=== PATIENT | female | born 1995 | race Caucasian/White ===

== ENCOUNTER 2020-06-10 12:03 | Outpatient (CLI) | payer OTHER, SELFPAY | END 2020-06-11 19:02 | disposition home or self-care (01) | LOC: SLB 12:03 | PROVIDERS: ATTEND Specialist | DX: Z20.828 Contact with and (suspected) exposure to other viral communicable diseases (principal) | CPT/HCPCS: C9803; U0003 ==

== ENCOUNTER 2022-04-19 22:00 | Inpatient (IN) | payer BC ==
[~2022-04-19] VITALS: Ht 167.6 cm; Wt 86.2 kg
[2022-04-20] MEDS ORDERED: NALBUPHINE HCL 10 MG/ML AMP IVP PRN
[2022-04-20] MEDS ORDERED: TERBUTALINE SULFATE 1 MG/ML VIAL SUBCUT ONE
[2022-04-20] MEDS ORDERED: AMPICILLIN SODIUM 2 GM in NS 100 ML IV ONE ×2
[2022-04-20 00:43] LABS: HEMOGLOBIN 11.6 g/dL (12.0-16.0); RED CELL DISTRIBUTION WIDTH 15.8 % (9.0-15.0)
[2022-04-20] MEDS ORDERED: AMPICILLIN SODIUM 2 GM VIAL ONE (00:46)
[2022-04-20 00:59] LABS: BASOPHILS % (AUTO) 0.3 % (0.0-2.0); EOSINOPHILS # (AUTO) 0.2 K/uL (0.0-0.4); EOSINOPHILS % (AUTO) 1.6 % (0.0-4.0); HEMATOCRIT 34.3 % (36-48); LYMPHOCYTES # (AUTO) 2.2 K/uL (1.0-5.5); LYMPHOCYTES % (AUTO) 22.1 % (20.5-51.5); MEAN CORPUSCULAR HEMOGLOBIN 28 pg (27-31); MEAN CORPUSCULAR HGB CONC 34 % (32-36); MEAN CORPUSCULAR VOLUME 84 fL (79.0-98.0); MONOCYTES # (AUTO) 0.7 K/uL (0.0-1.0); MONOCYTES % (AUTO) 6.7 % (1.7-9.3); NEUTROPHILS % (AUTO) 69.3 % (40.0-70.0); PLATELET COUNT (AUTO) 192 K/uL (130-430); RED BLOOD CELL COUNT(AUTO) 4.09 MIL/uL (4.2-6.2)
[2022-04-20] MEDS: LR 1,000 ML IV SCH ×2 (01:05→04:41)
[2022-04-20] MEDS ORDERED: AMPICILLIN SODIUM 1 GM VIAL ONE (04:14)
[2022-04-20] MEDS: AMPICILLIN SODIUM 1 GM in NS 50 ML IV SCH ×2 (04:41→09:16)
[2022-04-20] MEDS ORDERED: ROPIVACAINE HCL/PF 0.2% 200 ML ONE (04:52)
[2022-04-20] MEDS ORDERED: fentaNYL CITRATE/PF 100 MCG/2 ML AMP ONE (04:52)
[2022-04-20] MEDS ORDERED: FENT2mCg/mL-ROPIVA0.2%/NS EPID 200 ML EP SCH (05:45)
[2022-04-20] MEDS ORDERED: LR 500 ML IV ONE (05:45)
[2022-04-20] MEDS ORDERED: CITRIC ACID/SODIUM CITRATE 30 ML UDC ONE (10:26)
[2022-04-20] MEDS ORDERED: BUPIVACAINE /PF 0.5% 30 ML VIAL ONE (10:59)
[2022-04-20] MEDS ORDERED: BUPIVACAINE /PF 0.5% 30 ML VIAL EP ONE (10:59)
[2022-04-20] MEDS ORDERED: CITRIC ACID/SODIUM CITRATE 30 ML UDC PO ONE (11:15)
[2022-04-20] MEDS ORDERED: LIGHT MINERAL OIL 10 ML VIAL MC ONE (12:27)
[2022-04-20] MEDS ORDERED: LIDOCAINE PF 1% 30ML(POUR BTL) INJ ONE (12:27)
[2022-04-20] MEDS ORDERED: NALOXONE HCL 0.4 MG/ML AMP (NARCAN) ONE (12:28)
[2022-04-20] MEDS ORDERED: WITCH HAZEL LEAF 1 MED.PAD MED.PAD TP PRN (13:45)
[2022-04-20] MEDS ORDERED: OXYTOCIN/0.9 % SODIUM CHLORIDE 1,000 ML IV ONE (13:45)
[2022-04-20] MEDS ORDERED: NALOXONE HCL 0.4 MG/ML AMP (NARCAN) IVP PRN (13:45)
[2022-04-20] MEDS ORDERED: ANUSOL 1 EA SUPP.RECT (PREPARATION H) RC PRN (13:45)
[2022-04-20] MEDS ORDERED: MEASLES,MUMPS&RUBELLA VACC/PF 12500 UNIT/0.5 ML VIAL SUBQ PRN (13:45)
[2022-04-20] MEDS ORDERED: HYDROcodone/ACETAMIN 5-325 MG TAB (NORCO/ VICODIN) PO PRN (13:45)
[2022-04-20] MEDS ORDERED: METHYLERGONOVINE MALEATE 0.2 MG TABLET PO PRN (13:45)
[2022-04-20] MEDS ORDERED: OXYTOCIN/0.9 % SODIUM CHLORIDE 1,000 ML IV SCH ×2 (13:45)
[2022-04-20] MEDS ORDERED: RHO(D) IMMUNE GLOBULIN/MALTOSE 1500 UNITS/1.3 ML (WINHRO) IM PRN (13:45)
[2022-04-20] MEDS ORDERED: LANOLIN 7 GM OINT. TP PRN (13:45)
[2022-04-20] MEDS ORDERED: DIPH-TET-PERTUS Vaccine 0.5 ML VIAL (ADACEL) I.M. PRN (13:45)
[2022-04-20] MEDS ORDERED: OXYCODONE/ACETAMINOPHEN 5-325 TABLET PO PRN (13:45)
[2022-04-20] MEDS ORDERED: DERMOPLAST SPRAY TP PRN (13:45)
[2022-04-20] MEDS ORDERED: HYDROCORTISONE 0.5% CREAM 28.4 GM CREAM.GM. TP PRN (13:45)
[2022-04-20] MEDS: IBUPROFEN 600 MG TABLET PO SCH ×2 (17:52→23:59)
[2022-04-20 20:30] VITALS: BP_SYST 105
[2022-04-20] MEDS: SENNOSIDES/DOCUSATE SODIUM 1 TAB TABLET(SENOKOT-S) PO SCH (21:06)
[2022-04-20] MEDS: TEMAZEPAM 15 MG CAPSULE PO PRN (21:10)
[2022-04-20] MEDS: OXYCODONE/ACETAMINOPHEN 5-325 TABLET PO PRN (21:15)
[2022-04-21] MEDS: IBUPROFEN 600 MG TABLET PO SCH ×3 (06:19→18:21)
[2022-04-21 06:34] LABS: BASOPHILS % (AUTO) 0.3 % (0.0-2.0); EOSINOPHILS # (AUTO) 0.1 K/uL (0.0-0.4); EOSINOPHILS % (AUTO) 1.2 % (0.0-4.0); HEMATOCRIT 30.8 % (36-48); HEMOGLOBIN 10.4 g/dL (12.0-16.0); LYMPHOCYTES # (AUTO) 2.7 K/uL (1.0-5.5); LYMPHOCYTES % (AUTO) 22.9 % (20.5-51.5); MEAN CORPUSCULAR HEMOGLOBIN 29 pg (27-31); MEAN CORPUSCULAR HGB CONC 34 % (32-36); MEAN CORPUSCULAR VOLUME 85 fL (79.0-98.0); MONOCYTES # (AUTO) 0.6 K/uL (0.0-1.0); NEUTROPHILS # (AUTO) 8.2 K/uL (1.8-7.7); NEUTROPHILS % (AUTO) 70.6 % (40.0-70.0); PLATELET COUNT (AUTO) 171 K/uL (130-430); RED CELL DISTRIBUTION WIDTH 15.7 % (9.0-15.0); WHITE BLOOD COUNT (AUTO) 11.6 K/uL (4.8-10.8)
[2022-04-21] MEDS: DOCUSATE SODIUM 100 MG CAPSULE PO SCH (08:58)
[2022-04-21] MEDS: OXYCODONE/ACETAMINOPHEN 5-325 TABLET PO PRN (13:22)
[2022-04-21 19:45] VITALS: BP_SYST 114
[2022-04-21] MEDS: SENNOSIDES/DOCUSATE SODIUM 1 TAB TABLET(SENOKOT-S) PO SCH (21:12)
[2022-04-21] MEDS: TEMAZEPAM 15 MG CAPSULE PO PRN ×2 (21:12→21:14)
[2022-04-22] MEDS: IBUPROFEN 600 MG TABLET PO SCH ×3 (00:15→12:11)
[2022-04-22] MEDS: OXYCODONE/ACETAMINOPHEN 5-325 TABLET PO PRN (00:16)
[2022-04-22] MEDS: DOCUSATE SODIUM 100 MG CAPSULE PO SCH (08:44)
== END 2022-04-22 14:58 | disposition home or self-care (01) | DRG 806 ==
LOC: SPU 22:00 → OBSVTOIN 04-20 → SPU 04-21 18:29
PROVIDERS: ADMIT Specialist; ATTEND Specialist
PROC: 10E0XZZ Delivery of Products of Conception, External Approach (ICD-10-PCS; principal; 2022-04-20)
PROC: 3E0R3BZ Introduction of Anesthetic Agent into Spinal Canal, Percutaneous Approach (ICD-10-PCS; 2022-04-20)
PROC: 00HU33Z Insertion of Infusion Device into Spinal Canal, Percutaneous Approach (ICD-10-PCS; 2022-04-20)
DX: O42.913 Preterm premature rupture of membranes, unspecified as to length of time between rupture and onset of labor, third trimester (principal); O41.03X0 Oligohydramnios, third trimester, not applicable or unspecified; Z37.0 Single live birth; Z3A.38 38 weeks gestation of pregnancy; O69.81X0 Labor and delivery complicated by cord around neck, without compression, not applicable or unspecified; Z20.822 Contact with and (suspected) exposure to COVID-19
CPT/HCPCS: 36415; 76815; 81002; 85025; 86592; 86886; 86900; 86901; G0378; J0290; J2001; J2310; J2590; J3010; J3490